=== PATIENT | female | born 2000 | race Caucasian/White ===

== ENCOUNTER 2025-10-25 18:29 | Emergency (ER) | payer BC ==
[2025-10-25 19:46] LABS: MEAN PLATELET VOLUME 7.5 FL (7.4-10.4); RED CELL DISTRIBUTION WIDTH 12.3 % (11.5-14.5)
[2025-10-25 20:02] LABS: CREATININE 0.74 MG/DL (0.40-0.90); TOTAL CARBON DIOXIDE 27.9 MMOL/L (24-32); eGFR > 90 ML/MIN
[2025-10-25 20:22] VITALS: TEMP 97.6
[2025-10-25 20:24] LABS: LEUKOCYTE ESTERASE ,URINE NEGATIVE (Neg); NITRITES, URINE NEGATIVE (Neg); OCCULT BLOOD,URINE NEGATIVE (Neg); URINE HCG NEGATIVE (NEG)
[2025-10-25 20:25] LABS: UA COLLECTION TYPE CLN CATCH MIDSTREAM
--- NOTE | 2025-10-25 21:06 | Physician Documentation ---
History of Present Illness General Chief Complaint: Abdominal Pain Stated Complaint: UPPER ABD PAIN Time Seen by MD: 20:56 Mode of Arrival: POV History of Present Illness Initial Comments This is a very pleasant 25-year-old female who presents for evaluation of upper or/periumbilical abdominal pain that has been present for the last four days. No obvious trigger provocation. Insidious onset, getting gradually worse. No particular palliating factors, aggravated by the torso position change. Does report nausea without vomiting. Has not experienced this in the past. The pain is mostly dull, occasionally sharp episodes. Denies any chest pain or difficulty breathing. Denies any concerns for tobacco, alcohol or illicit substances use Medication Reconciliation Allergies: Coded Allergies: codeine (Verified Allergy, Unknown, 10/25/25) Review of Systems ROS 10 point review of systems was performed and unless noted above in HPI is negative for acute process/complaint. Physical Exam Physical Exam Vital Signs: Temperature: 97.6, Source: Temporal, Heart Rate: 88, Respiratory Rate: 16, BP: 125/79, Pulse Oximetry: 99 Oxygen Flow Rate: 0 Physical Exam GENERAL: Awake, alert, oriented, GCS 15, no apparent distress, non-toxic appearing, answers questions, follows commands appropriately. Examined in bed 8., accompanied by mom HEENT: Atraumatic, normocephalic, pupils equal, extraocular muscles intact, sclerae anicteric, mucus membranes moist, oropharynx is clear, no stridor. NECK: supple, full active range of motion, trachea midline, no thyromegaly, no lymphadenopathy, no JVD. CARDIOVASCULAR: regular rate/rhythm, no murmurs/gallops/rubs, Pulses are 2+ in all extremities and symmetric. Capillary refill less than 2 seconds. PULMONARY: Nonlabored, good air movement ,no respiratory distress, speaking in full sentences, clear to auscultation bilaterally, no wheezing, no ronchi, no rales, no accessory muscle use. GASTROINTESTINAL: Soft, epigastric abdominal pain to palpation reproducing chief complaint, no guarding or rebound, non-distended, normal active bowel sounds, no organomegaly, no pulsatile masses, no CVA tenderness. NEUROLOGIC: Lucid with normal mental status. Normal facial symmetry. Moves all extremities symmetrically and with purpose. No truncal ataxia. Speech is fluid without evidence of dysarthria or aphasia, no focal deficits appreciated. MUSCULOSKELETAL: There is full range of motion of all extremities. There is no joint pain or joint swelling or joint erythema. There is no muscle pain or tenderness or swelling. EXTREMITIES: warm, well-perfused, no cyanosis, no clubbing, no edema, no acute deformities. Skin: warm, dry, no rashes or lesions, no jaundice, no petechiae orpurpura. No ecchymosis. PSYCHIATRIC: Normal affect, normal insight, normal concentration. Focused exam: [] Progress Results/Orders Results/Orders Orders - SANKET ROJAS DO Ct Abdomen Pelvis (10/25/25 21:01) Normal Saline 1000ml (0.9% Sodium Chlori (10/25/25 21:05) Completed Orders - SANKET ROJAS DO Urinalysis, Cult If Indicated (10/25/25 19:20) Hcg, Ur Ql (10/25/25 19:20) Cbc/Diff (10/25/25 19:20) BMP (10/25/25 19:20) Lipase (10/25/25 19:20) CMP (10/25/25 19:20) Ct Abdomen Pelvis (10/25/25 21:01) Ondansetron Inj. (Zofran 4mg/2ml Vial) (10/25/25 21:05) Mag & Alum Hydrox/Simeth Susp (Maalox Or (10/25/25 21:05) Dicyclomine Capsule (Bentyl Capsule) (10/25/25 21:05) Lidocaine 2% Viscous (Xylocaine 2% Visco (10/25/25 21:05) Iohexol 300mg/Ml 100ml Inj. (Omnipaque-3 (10/25/25 21:24) Vital Signs 10/25/25 10/25/25 10/25/25 19:16 20:22 20:22 Temp 97.6 97.6 Pulse 115 88 Resp 15 16 19 B/P (MAP) 132/88 125/79 (94) Pulse Ox 99 99 O2 Flow Rate 0 Laboratory Tests Test 10/25/25 19:37 10/25/25 19:40 White Blood Count 7.8 Red Blood Count 5.07 Hemoglobin 15.8 Hematocrit 46.2 H Mean Corpuscular Volume 91.1 Mean Corpuscular Hemoglobin 31.3 H Mean Corpuscular Hemoglobin Concent 34.3 Red Cell Distribution Width 12.3 Platelet Count 300 Mean Platelet Volume 7.5 Neutrophils (%) (Auto) 61.2 Lymphocytes (%) (Auto) 32.0 Monocytes (%) (Auto) 5.9 Eosinophils (%) (Auto) 0.4 Basophils (%) (Auto) 0.5 Neutrophils # (Auto) 4.8 Lymphocytes # (Auto) 2.5 Monocytes # (Auto) 0.5 Eosinophils # (Auto) 0.0 Basophils # (Auto) 0.0 CBC Comment Sodium Level 139 Potassium Level 3.8 Chloride Level 104 Carbon Dioxide Level 27.9 Anion Gap 7 L Blood Urea Nitrogen 9 Creatinine 0.74 Estimated GFR/1.73 m2 > 90 BUN/Creatinine Ratio 12.2 Glucose Level 97 Calcium Level 9.5 Total Bilirubin 0.4 Aspartate Amino Transf (AST/SGOT) 14 Alanine Aminotransferase (ALT/SGPT) 18 Alkaline Phosphatase 88 Total Protein 9.2 H Albumin 4.9 Globulin 4.3 Albumin/Globulin Ratio 1.1 Lipase 25 Chemistry Comments Urine Specimen Description Cln catch midstream Urine Color Yellow Urine Clarity Clear Urine pH 6.0 Urine Specific [place] >=1.030 Urine Protein Negative Urine Glucose (UA) Negative Urine Ketones >=80 Urine Occult Blood Negative Urine Nitrite Negative Urine Bilirubin Negative Urine Urobilinogen 0.2 Urine Leukocyte Esterase Negative Urine Culture Indicated Not ind Volume Urine Centrifuged 10 ml Urine HCG, Qualitative Negative Urine Comment Medical Decision Making Additional information obtaine: family Findings Facility Status: ED [facility], [facility] process The plan was discussed with the patient, who demonstrates clear understanding of the plan and is in agreement with the plan unless otherwise noted in the chart. All questions have been answered, all concerns were addressed unless otherwise documented. I was available throughout their ED stay for frequent reassessment and questions. Differential Diagnoses (considered and possible or likely): [Differential diagnosis considered includes acute appendicitis, acute cholecystitis, pancreatitis, gastritis, PUD, diverticulitis, mesenteric ischemia, abdominal aortic aneurysm, bowel obstruction, enteritis, colitis, fecal impaction, volvulus, IBS, inflammatory bowel disease, specific food intolerance, peritonitis, perforated viscous, malignancy, UTI, abscess, and abdominal pain NOS. Pelvic source of pain was also considered including endometritis, dysmenorrhea, ovarian cyst, ovarian torsion, PID, TOA, cervicitis, vaginitis, or uterine fibroid. History, physical exam, and workup exclude many of the more serious causes listed above. ] ??Differential Diagnoses (considered and unlikely, not requiring evaluation currently): [See above] MDM Data Please see HPI for the following: Independent Historians and external Records Review. Historian: [Patient] Independent Historians: ?[Record review, mom] Medication Management: [Reviewed medication list] Social History and determinants: [Reviewed] Please see the body of the note for the following: Any independent interpretat ions of ECG, imaging studies. All vitals signs/haemodynamics, ordered tests were independently reviewed and interpreted by myself. Nursing triage complaint and vitals reviewed, additional nursing notes were reviewed as available and I agree unless otherwise noted or documented in contradiction in the chart Vital Signs: Independently reviewed Labs: Independently interpreted Imaging: Independently interpreted Old Medical Records: Independently reviewed, see HPI for relevant summary and information Pulse Oximetry: [98%] interpreted as [normal on room air] by me [Radio Artist: [Regular Rate, Regular rhythm, no ectopy, NSR] reviewed and interpreted by me] Additionally notably showing: [Hemodynamically stable, no evidence of tachycardic, hypotension, respiratory distress. Laboratory studies unremarkable, no anemia, normal lipase, normal urine, she is not , normal metabolic panel.] Tests considered but not ordered include: [Initially did not consider advanced imaging, with a she does have persistent pain, she can benefit from advanced diagnostics. That upper quadrant ultrasound has been considerably as well, but her clinical picture isn't consistent with the acute cholecystitis. It is also not consistent with a torsion. Pain is upper abdomen.] Social Determinants of Health Impact: Patient was evaluated in [facility] [place] to healthcare due to below par ratio of patient to medical providers. [] Comorbid Conditions Impacting Present Evaluation and Care/Treatment: History of hiatal hernia Management Discussions with other Healthcare Providers: [None] Treatment and Disposition Medication Management (Given or considered): [Pain management was offered that you declined]. See EMR for details Consideration for Hospitalization/Escalation/Deescalation of Care: Admission for observation has been considered, [however the patient is able to tolerate p.o., their symptoms are controlled, they are able to rely on oral medications, and their chief complaint/diagnosis can be managed on outpatient basis.] ?ED Course:?[Advanced imaging of the abdomen and pelvis did not reveal any acute intra-abdominal process. The appendix was not visualized. No clinical deterioration.] ?Shared decision making:?[Patient is hemodynamically stable for discharge home with follow with their primary care provider. [ ] Specific and cautious return precautions provided and discussed with full understanding. Any incidental findings were also discussed and follow up recommendations given. [] All questions answered. Patient/family were able to verbalize back return precautions. Patient/family agree to plan. Copies of imaging and laboratory studies were provided.] Code status:?FULL Please see the full Electronic Medical Record for full details of nursing documentation, medications list, other records of complete past medical history and conditions, vital signs, laboratory studies, and any radiologic study interpretations by radiologists. Portions of this note were completed using [employer] dictation software and as a result there may exist minor errors in spelling. I have reviewed elements of past family and social history and agree as included in note. Differential Diagnosis See body of main note for differential diagnosis Departure Disposition: HOME / SELF CARE / HOMELESS Impression: Primary Impression: Abdominal pain Condition: Improved Discharge Instructions: Abdominal Pain (Nonspecific) Additional Instructions: Please follow-up with your PCP, and if his symptoms continue, you will need referral to Gastroenterology again for endoscopy. Referrals: NO PRIMARY CARE PROVIDER (PCP) Prescriptions ONDANSETRON ODT 4mg tablet (ONDANSETRON ODT) 4 Mg Tab.rapdis 1 TAB PO Q6H PRN PRN for nausea/vomiting for 4 Days, #16 TAB 0 Refills Prov: SANKET ROJAS DO 10/25/25 Dicyclomine HCl (Dicyclomine HCl) 20 Mg Tablet 1 TAB PO Q8H for irritable bowel symptoms for 10 Days, #30 TAB 0 Refills Prov: SANKET ROJAS DO 10/25/25 Education Educated: Patient, Family Educated regarding: diagnosis, treatment, prognosis, need for follow up Signature Scribe Signature: No scribe Attestation: The note accurately reflects work and decisions made by me.Sanket Rojas DO 10/25/25 21:02 SANKET ROJAS DO Oct 25, 2025 21:06
[2025-10-25] MEDS ORDERED: iohexol 300mg/ml 100ml inj. ONE (21:24)
--- NOTE | 2025-10-25 21:55 | RADIOLOGY REPORT ---
CLINICAL HISTORY: upper abd pain TECHNIQUE: CT of the abdomen and pelvis was performed with intravenous contrast . This exam was performed according to our departmental dose optimization program. Up-to-date CT equipment and radiation dose reduction techniques are utilized as appropriate. WID: COMPARISON: None FINDINGS: Lung bases: Unremarkable. Liver: Unremarkable. Gallbladder and bile ducts: Unremarkable. Spleen: Unremarkable. Pancreas: Unremarkable. Adrenals: Unremarkable. Kidneys and ureters: Unremarkable. Bowel: Unremarkable. The appendix is not visualized; however, there are no secondary signs of acute appendicitis. The stomach is unremarkable. Bladder: Unremarkable. Reproductive organs: Unremarkable. Lymph nodes: Unremarkable. Vessels: Unremarkable. Abdominal wall: Unremarkable. Bones: Unremarkable. Other: Unremarkable. IMPRESSION: No acute intra-abdominal findings
[2025-10-25] MEDS ORDERED: ONDA-243 PO (22:04)
[2025-10-25] MEDS ORDERED: DICY20TA17 PO (22:04)
[2025-10-25] MEDS: normal saline 1000ml 1,000 ML IV ONE (22:17)
[2025-10-25] MEDS: mag hydrox/Alum hydrox/simeth 30ml oral suspension PO ONE (22:18)
[2025-10-25] MEDS: ondansetron/PF 4mg/2ml inj IV ONE (22:18)
[2025-10-25] MEDS: LIDOcaine 2% Viscous 15ml cup MM ONE (22:19)
[2025-10-25 23:20] VITALS: BP 123/81; PULSE 80; RESP 14; O2SAT 97
== END 2025-10-25 23:21 | disposition home or self-care (01) ==
LOC: ER 18:30
DX: R10.13 Epigastric pain (principal); Z88.5 Allergy status to narcotic agent
CPT/HCPCS: 36415; 74177; 80053; 81003; 81025; 83690; 85025; 96361; 96374; 99285; J2405; J7030; Q9967